=== PATIENT | male | born 1985 | race Caucasian/White ===

== ENCOUNTER 2022-09-24 19:08 | Emergency (ER) | payer SELFPAY ==
[~2022-09-24] VITALS: Ht 182.9 cm; Wt 86.8 kg
[2022-09-24 21:45] VITALS: BP 137/99
[2022-09-24] MEDS ORDERED: HYDROCODONE/ACETAMINOPHEN 7.5/325MG TABLET PO ONE (21:45)
[2022-09-24] MEDS ORDERED: CYCLOBENZAPRINE 10MG TABLET PO SCH (21:45)
[2022-09-24] MEDS ORDERED: PREDNISONE 20MG TABLET PO ONE (21:45)
[2022-09-24] MEDS ORDERED: HYDR-4001 MT (21:55)
[2022-09-24] MEDS ORDERED: CYCL5TAB MT (21:55)
[2022-09-24] MEDS ORDERED: P20 MT (21:55)
== END 2022-09-24 22:30 | disposition home or self-care (01) ==
LOC: ER 19:08
DX: M54.12 Radiculopathy, cervical region (principal)
CPT/HCPCS: 99284; J7512; Z7610